=== PATIENT | female | born 1995 ===

== ENCOUNTER 2018-06-04 19:50 | Inpatient (IN) | payer BC ==
[2018-06-04 20:17] VITALS: BMI 33.3
[2018-06-04] MEDS ORDERED: Lactated Ringer's 1,000 ML IV SCH (20:45)
--- NOTE | 2018-06-04 20:51 | OBADHP ---
Datetime: 06/04/2018 20:45 Admit Comment, IP Provider: patient is at 38+6 weeks per LMP 09/05/17 presents with contractions +FM +CTX - LOF - VB LMP 09/05/17 denies STIs normal PAPs denies PMH father wtih DM NKDA taking PNV denies smoking,drinking drug use labs reviewed, RH +, GBS negative, labs normal plain for IOL for cervidil for low ABDIEL per private MD Pelvic Type - PN: Adequate Extremities - PN: Not Done Abdomen - PN: Normal Back - PN: Normal Breast - PN: Not Done Lungs - PN: Not Done Heart - PN: Not Done Thyroid - PN: Not Done Neurologic - PN: Not Done HEENT - PN: Normal General - PN: Normal FHR - Baseline A Provider: 140s IP Chief Complaint: Uterine contractions; Other NICHD Variability Prov Fetus A: Moderate 6-25bpm NICHD Accel Fetus A IP Provider: 15X15 Dilatation, Provider: 1 Effacement, Provider: long Station, Provider: -3 Genitourinary Exam: Not Done DTRs - PN: Not Done EGA AdmitDate IP: 38.6 IP Adm Impression: Term, intrauterine IP Admit Plan: Admit to unit; Initiate labor protocol; Initiate labor induction protocol
[2018-06-04 21:40] LABS: BASO % 0.5 % (0.0-2.0); EOS # 0.3 K/uL (0.0-0.7); EOS % 3.6 % (0.0-4.0); HEMOGLOBIN 11.7 g/dL (11.0-16.0); LYMPH # 2.4 K/uL (1.0-4.3); LYMPH % 30.8 % (20.0-40.0); MEAN CELL VOLUME 85.5 fL (81.0-99.0); MEAN CORPUSCULAR HEMOGLOBIN 29.6 pg (27.0-31.0); MEAN CORPUSCULAR HGB CONC 34.6 g/dL (33.0-37.0); MEAN PLATELET VOLUME 8.9 fL (7.2-11.7); MONO # 0.7 K/uL (0.0-0.8); MONO % 8.3 % (0.0-10.0); NEUT # 4.5 K/uL (1.8-7.0); NEUT % 56.8 % (50.0-75.0); NRBC % 0.1 % (0.0-2.0); RBC 3.94 Mil/uL (3.80-5.20); RED CELL DISTRIBUTION WIDTH 14.7 % (11.5-14.5); WHITE BLOOD COUNT 7.9 K/uL (4.8-10.8)
[2018-06-04 21:49] LABS: SQUAMOUS EPITHIAL 2 /hpf (0-5); URINE BACTERIA FEW (<OCC); URINE BILIRUBIN NEGATIVE (NEGATIVE); URINE BLOOD NEGATIVE (NEGATIVE); URINE CLARITY Clear (Clear); URINE COLOR Straw (YELLOW); URINE GLUCOSE (UA) NORMAL (Normal); URINE LEUKOCYTE ESTERASE 3+ Leu/uL (Negative); URINE PROTEIN NEGATIVE (NEGATIVE); URINE UROBILINOGEN NORMAL mg/dL (0.2-1.0)
--- NOTE | 2018-06-04 22:02 | OBPN ---
Datetime: 06/04/2018 21:58 IP Informed Consent Obtain: Vaginal Delivery IP Progress Plan: Induction; Cervical Ripening FHR - Baseline A Provider: 130 IP Progress Note Comment: 24 @ 38 6/7 presents for induction for oligo - SVE: 3 - cervidil placed NICHD Accel Fetus A IP Provider: 15X15 NICHD Variability Prov Fetus A: Moderate 6-25bpm NICHD Decel Fetus A IP Provider: None Datetime: 06/04/2018 20:45 Dilatation, Provider: 1 Effacement, Provider: long Station, Provider: -3
[2018-06-05] MEDS ORDERED: Bupivacaine HCl/FentaNYL Cit 100 ML EPI ONE ×3 (04:03→17:36)
[2018-06-05] MEDS ORDERED: Oxytocin 30 UNIT 30 UNITS/500 ML BAG IV ONE (08:43)
[2018-06-05] MEDS ORDERED: Lidocaine 2% MPF (5 ml) Inj ONE (17:28)
[2018-06-05 18:24] LABS: RAPID PLASMA REAGIN NONREACTIVE (NONREACTIVE)
[2018-06-05] MEDS ORDERED: Oxycodone/Acetaminophen 5/325 mg Tab PO PRN (21:30)
[2018-06-05] MEDS ORDERED: Benzocaine/Menthol 20%-0.5% Topical Spray (60 ml) TOP PRN (21:30)
--- NOTE | 2018-06-05 21:34 | OBHP ---
Datetime: 06/04/2018 21:58 FHR - Baseline A Provider: 130 NICHD Variability Prov Fetus A: Moderate 6-25bpm NICHD Accel Fetus A IP Provider: [id number] Datetime: 06/04/2018 20:45 IP Adm Impression: Term, intrauterine IP Admit Plan: Admit to unit; Initiate labor protocol; Initiate labor induction protocol Admit Comment, IP Provider: patient is at 39 weeks per LMP 09/05/17 presents with contractions +FM +CTX - LOF - VB LMP 09/05/17 denies STIs normal PAPs denies PMH father wtih DM NKDA taking PNV denies smoking,drinking drug use labs reviewed, RH +, GBS negative, labs normal @ 39wks iol for oligohgramins admit npo, vf admisison labs cervidl Pelvic Type - PN: Adequate Extremities - PN: Not Done Abdomen - PN: Normal Back - PN: Normal Breast - PN: Not Done Lungs - PN: Not Done Heart - PN: Not Done Thyroid - PN: Not Done Neurologic - PN: Not Done HEENT - PN: Normal General - PN: Normal Presentation-Admit: Vertex Comments, ACOG Physical Exam: bedise sono candi 4.7cm, vtx Gestation - Est Wks by US: 39.0 EGA AdmitDate IP: 38.6 IP Chief Complaint: Uterine contractions; Other NICHD Decel Fetus A IP Provider: None Dilatation, Provider: 1 Effacement, Provider: long Station, Provider: -3 Genitourinary Exam: Not Done DTRs - PN: Not Done
--- NOTE | 2018-06-05 21:37 | OBDS ---
[facility]ERSON[facility] Delivery Doctor: Awais De La Cruz MD Anesthesiologist: DR. MONACO MATERNAL INFORMATION Estimated Blood Loss (ml): 400 Provider Comments: pt was fully dilated and pushing. atrumatic, sponatneous delivery of head in KRISTIE positin. No Nuchal cord noted.. Atrauatmic, spontaneous delivery of anterior followed by posterior sh oulder followed by delivery of the body. Both oral and nasal passages of the baby were bulb suctioned . umbilcal cord was clamped adn cut adn baby was handed to [facility] on abdomen with RN assistance. Cord blood and cord gases collectd and sent x 2. Spontaneous delivery of intact placenta with membranes. Fundus firm, good hemostasis. third degree peirneal laceration noted nda repaired with 2-0 and 3-0 h cormic. .No complications live female apgars 9,9 ebl 400ml weight 8lbs 3ounces no complications LABOR SUMMARY EDC: 06/12/2018 00:00 No. Babies in Womb: 0 LABOR INFORMATION Cervical Ripening Agents: Cervidil (Annotations: INSERTED VAGINALLY BY ) Group B Beta Strep: Negative MEMBRANES Membranes Rupture Method: Artificial Amniotic Fluid Color: Clear Amniotic Fluid Amount: Moderate STAGES OF LABOR Stage 3 hrs: 0 Stage 3 min: 11 VAGINAL DELIVERY Laceration Extension: Third Degree BABY A INFORMATION Infant Delivery Date/Time: 06/05/2018 20:56 Method of Delivery: Vaginal Born in Route : No : N/A Forceps: N/A Vacuum Extraction: N/A Shoulder Dystocia : No SHOULDER DYSTOCIA BABY A Delivery Date/Time: 06/05/2018 20:56 PLACENTA INFORMATION BABY A Placenta Delivery Time : 06/05/2018 21:07 INFORMATION BABY A Gestational Age at Delivery: 39.0 Gestational Status: Term Outcome : Liveborn Condition : Stable Infant Sex: Female IDENTIFICATION/MEDS BABY A ID Band Number: [id number] Sensor Number: [id number] WEIGHT/LENGTH BABY A Birthweight (gms): 3705 Infant Weight (lb): 8 Weight (oz): 3 Infant Length Inches: 21.00 Infant Length cms: 53.3
[2018-06-05] MEDS ORDERED: ceFAZolin IV 2 gm in Dextrose 2 GM/50 ML BAG IVPB SCH (21:45)
[2018-06-05] MEDS: ceFAZolin 2 GM in Sodium Chloride 0.9% 100 ML IVPB SCH (22:15)
[2018-06-06] MEDS: ceFAZolin 2 GM in Sodium Chloride 0.9% 100 ML IVPB SCH ×2 (07:00→13:21)
[2018-06-06 08:35] LABS: BASO # 0.1 K/uL (0.0-0.2); BASO % 0.4 % (0.0-2.0); EOS # 0.1 K/uL (0.0-0.7); EOS % 0.3 % (0.0-4.0); HEMOGLOBIN 11.4 g/dL (11.0-16.0); LYMPH # 1.8 K/uL (1.0-4.3); LYMPH % 12.1 % (20.0-40.0); MEAN CELL VOLUME 86.1 fL (81.0-99.0); MEAN CORPUSCULAR HEMOGLOBIN 28.5 pg (27.0-31.0); MEAN CORPUSCULAR HGB CONC 33.1 g/dL (33.0-37.0); MEAN PLATELET VOLUME 8.5 fL (7.2-11.7); MONO # 0.8 K/uL (0.0-0.8); MONO % 5.5 % (0.0-10.0); NEUT # 12.1 K/uL (1.8-7.0); NEUT % 81.7 % (50.0-75.0); NRBC % 0.1 % (0.0-2.0); RBC 3.98 Mil/uL (3.80-5.20); RED CELL DISTRIBUTION WIDTH 14.6 % (11.5-14.5)
[2018-06-06 08:37] LABS: WHITE BLOOD COUNT 14.8 K/uL (4.8-10.8)
--- NOTE | 2018-06-06 09:55 | OBPPN ---
Datetime: 06/06/2018 09:50 PP Pain Prov: Within normal limits PP Nausea Prov: Denies PP Flatus Prov: Yes PP BM Prov: No PP Breasts Prov: Normal PP Heart Prov: Normal PP Lungs Prov: Normal PP Abdomen/Uterus Prov: Normal PP Lochia Prov: Normal PP Vulva/Perineum Prov: Normal PP CVA Tenderness Prov: Normal PP Extremities Prov: Normal PP C/S Incision Prov: Not Applicable PP Progress Prov: Normal PP Impression Prov: Normal progression PP Plan Prov: Continue present management PP Progress Note Prov: pt seen and examiend adn rpeorts pain controlled wiht medicain. pt ambuaitng out of bed to bathroom, passing flatus, breast feeding, denies any fever, chills, nasue, vomting, cp, sob. VSS PE GEN NAD AAo x3 RESP: CTAB?l CVS: RRR, +S1S?2 AB: soft, nt, nd, +BS, no guarding no rebudn tendnere, no rigdity VE: incsin site c//di, moderate lochia, non fouls smelling EXT: no calft tendneren, negnativ ehoman's sign a/p s/p ppd #1 am cbc pian manentet regualr diet pericare Vital Signs Provider PP: Reviewed; Within Normal Limits
[2018-06-06] MEDS: Multiple Vitamins Tab PO SCH (10:08)
[2018-06-06] MEDS ORDERED: Magnesium Hydroxide Susp 30 ml UD PO ONE (11:00)
--- NOTE | 2018-06-07 04:13 | OBPPN ---
Datetime: 06/07/2018 04:10 PP Pain Prov: Within normal limits PP Nausea Prov: Denies PP Flatus Prov: Yes PP BM Prov: No PP Breasts Prov: Normal PP Heart Prov: Normal PP Lungs Prov: Normal PP Abdomen/Uterus Prov: Normal PP Lochia Prov: Normal PP Vulva/Perineum Prov: Normal PP CVA Tenderness Prov: Normal PP Extremities Prov: Normal PP C/S Incision Prov: Not Applicable PP Progress Prov: Normal PP Impression Prov: Normal progression PP Plan Prov: Discharge PP Progress Note Prov: pt seen adn examied and reprots pain rlq controlld with medicaion. pt ambuiat n,b odiign, passing flatus, tolerated regular diet. pt denies nay fever, chills, nause, vomiting cp, sob VSS PE GEN NAD AAO x 3 RESP: CTAB: CVS:RRR< +S1/S2 ABDS: soft, NT/ND, +BS, no gurding ,no rebound tendenress ,no rigidity, no uterine tenderss Fundus: firm, below level of umbiulcs VE: minimal lohcia, non foul smelling EXT; no calf tenderness, negative chris's sign A/P s/p ppd #2 doign well am cbc discharge ome rto 6 weeks Vital Signs Provider PP: Reviewed; Within Normal Limits
--- NOTE | 2018-06-07 04:13 | OBDCSUM ---
Datetime: 06/07/2018 04:11 Discharged to, Provider: Home Follow up at, Provider: Dr De La Cruz Disch Instr Activity: Normal activity Disch Instr Diet: Regular Discharge Instructions, Provider: Routine instructions given Discharge Diagnosis, Provider: Term Delivered Discharge Time: 06/07/2018 04:11 Follow up in weeks, Provider: 6 weeks Disch Referrals: None Contraception discussed, Prov: Yes Disch Activity Restrictions: No sexual activity; Nothing in vagina - [place], tampons, douche Discharge Comment, Provider: precaution given Contraception after Delivery: Not Planning to Use
[2018-06-07 07:21] LABS: BASO % 0.4 % (0.0-2.0); EOS # 0.3 K/uL (0.0-0.7); EOS % 2.1 % (0.0-4.0); HEMOGLOBIN 10.7 g/dL (11.0-16.0); LYMPH # 2.6 K/uL (1.0-4.3); LYMPH % 21.2 % (20.0-40.0); MEAN CELL VOLUME 86.5 fL (81.0-99.0); MEAN CORPUSCULAR HEMOGLOBIN 29.2 pg (27.0-31.0); MEAN CORPUSCULAR HGB CONC 33.7 g/dL (33.0-37.0); MEAN PLATELET VOLUME 9.1 fL (7.2-11.7); MONO # 0.6 K/uL (0.0-0.8); MONO % 5.2 % (0.0-10.0); NEUT # 8.6 K/uL (1.8-7.0); NEUT % 71.1 % (50.0-75.0); RBC 3.68 Mil/uL (3.80-5.20)
[2018-06-07] MEDS: Multiple Vitamins Tab PO SCH (09:38)
[2018-06-07] MEDS ORDERED: Influenza Vaccine 60 MCG/0.5 ML SYR (3 yr & up) IM ONE (10:23)
[2018-06-07 18:04] VITALS: BP 110/61; PULSE 91; RESP 18; TEMP 97.5; O2SAT 98
== END 2018-06-07 13:30 | disposition home or self-care (01) | DRG 768 ==
LOC: C.EROB 19:50 → C.4D 20:42 → C.4M 06-05 23:30
PROVIDERS: ADMIT Obstetrics & Gynecology; ATTEND Obstetrics & Gynecology
PROC: 10E0XZZ Delivery of Products of Conception, External Approach (ICD-10-PCS; principal; 2018-06-04)
PROC: 0DQR0ZZ Repair Anal Sphincter, Open Approach (ICD-10-PCS; 2018-06-04)
DX: O70.20 Third degree perineal laceration during delivery, unspecified (principal); Z37.0 Single live birth; Z3A.38 38 weeks gestation of pregnancy